=== PATIENT | female | born 1945 | race Caucasian/White ===

== ENCOUNTER 2021-11-25 12:43 | Observation (INO) | payer MEDICARE ==
[~2021-11-25] VITALS: Ht 167.6 cm; Wt 74.6 kg
[2021-11-25 13:17] LABS: BASOPHILS # (AUTO) 0.1 (0.0-0.1); BASOPHILS % 0.8 % (0.0-1.0); EOSINOPHILS # (AUTO) 0.1 (0.0-0.4); EOSINOPHILS % 1.2 % (0.0-6.0); HEMATOCRIT 38.6 % (34.2-44.1); HEMOGLOBIN 12.5 g/dL (12.0-16.0); LYMPHOCYTES # (AUTO) 1.3 (1.0-3.2); LYMPHOCYTES % 13.7 % (18.0-39.1); MEAN CORPUSCULAR HEMOGLOBIN 30.9 pg (28-32); MEAN CORPUSCULAR HGB CONC 32.4 g/dL (31-35); MEAN CORPUSCULAR VOLUME 95.3 fL (81-99); MONOCYTES # (AUTO) 0.5 (0.2-0.8); MONOCYTES % 5.4 % (4.4-11.3); NEUTROPHILS # (AUTO) 7.3 (2.1-6.9); NEUTROPHILS % 78.4 % (38.7-80.0); PLATELET COUNT 290 x10e3/uL (140-360); RED BLOOD COUNT 4.05 x10e6/uL (3.6-5.1); RED CELL DISTRIBUTION WIDTH 14.3 % (11.7-14.4)
[2021-11-25 13:37] LABS: ALANINE AMINOTRANSFERASE 7 IU/L (0-55); ALKALINE PHOSPHATASE 63 IU/L (40-150); ANION GAP 17.9 mmol/L (8-16); BLOOD UREA NITROGEN 18 mg/dL (7-26); BUN/CREATININE RATIO 10 (6-25); CALCIUM 8.9 mg/dL (8.4-10.2); CARBON DIOXIDE 21 mmol/L (22-29); CHLORIDE 106 mmol/L (98-107); CREATINE KINASE 148 IU/L (29-168); CREATININE, SERUM 1.74 mg/dL (0.57-1.11); GLUCOSE 100 mg/dL (74-118); POTASSIUM 3.9 mmol/L (3.5-5.1); SODIUM 141 mmol/L (136-145)
[2021-11-25] MEDS ORDERED: SODIUM CHLORIDE 0.9% 500ML 500 ML IV ONE (14:30)
[2021-11-25] MEDS ORDERED: IOPAMIDOL 370 MG/ML 100 ML INFUS..BTL INJ ONE (15:12)
[2021-11-25] MEDS ORDERED: NITROGLYCERIN 0.4 MG SUBL SL PRN (16:15)
[2021-11-25] MEDS ORDERED: ASPIRIN 81 MG CHEW TAB PO ONE (16:15)
[2021-11-25] MEDS ORDERED: ONDANSETRON HCL INJ 2MG/ML 2ML 2 MG/ML VIAL IV PRN (16:15)
[2021-11-25] MEDS ORDERED: SODIUM CHLORIDE 0.9% 1000ML 1,000 ML IV SCH (16:15)
[2021-11-25] MEDS ORDERED: FLUOXETINE HCL20 MG PO (16:19)
[2021-11-25] MEDS ORDERED: XELJANZ XR11 MG PO (16:19)
[2021-11-25] MEDS ORDERED: SODIUM BICARBO650 MG PO (16:19)
[2021-11-25] MEDS ORDERED: METOPROLOL SUCC25 MG PO (16:19)
[2021-11-25] MEDS ORDERED: AMLODIPINE BESYL5 MG PO (16:19)
[2021-11-25] MEDS ORDERED: GABAPENTIN100 MG PO (16:19)
[2021-11-25] MEDS ORDERED: LEVOTHYROXINE75 MCG PO (16:19)
[2021-11-25] MEDS ORDERED: PANTOPRAZOLE SO40 MG PO (16:19)
[2021-11-25] MEDS: FAMOTIDINE 20 MG/2 ML VIAL IV SCH (17:01)
[2021-11-25 19:56] LABS: CREATINE KINASE MB 1.5 ng/mL (0-5.0)
[2021-11-25 20:14] VITALS: BP 149/58
[2021-11-25 20:35] VITALS: BP 149/58
[2021-11-26 00:20] VITALS: BP 134/65
[2021-11-26 01:06] LABS: CREATINE KINASE MB 1.6 ng/mL (0-5.0)
[2021-11-26 04:00] VITALS: BP 136/68
[2021-11-26] MEDS: FAMOTIDINE 20 MG/2 ML VIAL IV SCH ×2 (04:15→16:10)
[2021-11-26] MEDS ORDERED: LEVOTHYROXINE SODIUM 75 MCG TAB PO SCH (06:00)
[2021-11-26 06:13] LABS: BASOPHILS # (AUTO) 0.1 (0.0-0.1); EOSINOPHILS # (AUTO) 0.1 (0.0-0.4); EOSINOPHILS % 1.9 % (0.0-6.0); HEMATOCRIT 33.8 % (34.2-44.1); HEMOGLOBIN 10.7 g/dL (12.0-16.0); LYMPHOCYTES # (AUTO) 1.2 (1.0-3.2); LYMPHOCYTES % 19.9 % (18.0-39.1); MEAN CORPUSCULAR HEMOGLOBIN 30.4 pg (28-32); MEAN CORPUSCULAR HGB CONC 31.7 g/dL (31-35); MONOCYTES # (AUTO) 0.5 (0.2-0.8); NEUTROPHILS # (AUTO) 3.9 (2.1-6.9); NEUTROPHILS % 67.7 % (38.7-80.0); PLATELET COUNT 214 x10e3/uL (140-360); RED BLOOD COUNT 3.52 x10e6/uL (3.6-5.1); RED CELL DISTRIBUTION WIDTH 14.4 % (11.7-14.4)
[2021-11-26 06:41] LABS: CREATINE KINASE MB 1.5 ng/mL (0-5.0)
[2021-11-26 07:01] LABS: CALCIUM 8.1 mg/dL (8.4-10.2); CHOL/HDL RATIO 4.1 (3.0-3.6); CREATININE, SERUM 1.22 mg/dL (0.57-1.11)
[2021-11-26 08:00] VITALS: BP 155/72
[2021-11-26 08:09] VITALS: BP 155/72
[2021-11-26] MEDS: GABAPENTIN 100 MG CAP PO SCH ×2 (08:57→16:10)
[2021-11-26] MEDS ORDERED: AMLODIPINE BESYLATE 5 MG TAB PO SCH (09:00)
[2021-11-26] MEDS ORDERED: ASPIRIN 81 MG ENTERIC COATED PO SCH (09:00)
[2021-11-26] MEDS ORDERED: METOPROLOL SUCCINATE 25 MG TAB XL PO SCH (09:00)
[2021-11-26] MEDS ORDERED: PANTOPRAZOLE SOD 40 MG TABEC PO SCH (09:00)
[2021-11-26] MEDS ORDERED: XELJANZ 11 MG PO SCH (09:00)
[2021-11-26] MEDS ORDERED: FLUOXETINE HCL 20 MG CAP PO SCH (09:00)
[2021-11-26] MEDS ORDERED: SODIUM BICARBONATE 650 MG TAB PO SCH (09:00)
[2021-11-26] MEDS ORDERED: ONDANSETRON HCL 4 MG ORAL DISINTEGRATING TAB PO PRN (10:30)
[2021-11-26 11:41] VITALS: BP 140/61
[2021-11-26 15:44] VITALS: BP 137/67
== END 2021-11-26 17:56 | disposition home or self-care (01) ==
LOC: ER 13:00 → INTOOBSV 16:09 → ERHOLD 16:09 → MED/SURG 20:06
DX: R07.89 Other chest pain (principal); I12.9 Hypertensive chronic kidney disease with stage 1 through stage 4 chronic kidney disease, or unspecified chronic kidney disease; N18.2 Chronic kidney disease, stage 2 (mild); K21.9 Gastro-esophageal reflux disease without esophagitis; M06.9 Rheumatoid arthritis, unspecified; E03.9 Hypothyroidism, unspecified; R07.2 Precordial pain; R00.2 Palpitations; K44.9 Diaphragmatic hernia without obstruction or gangrene; D63.8 Anemia in other chronic diseases classified elsewhere; Z88.5 Allergy status to narcotic agent; Z88.0 Allergy status to penicillin; Z20.822 Contact with and (suspected) exposure to COVID-19
CPT/HCPCS: 36415 ×2; 71045; 71260; 80048; 80053; 80061; 82550 ×2; 82553 ×2; 83880; 84484 ×2; 85025 ×2; 85379; 93005; 93306; 94799 ×2; 99284; G0378 ×2; J7030 ×2; J7040; Q9967; S0164; U0002

== ENCOUNTER 2023-04-18 13:18 | Emergency (ER) | payer MEDICARE ==
[~2023-04-18] VITALS: Ht 167.6 cm; Wt 74.4 kg
[~2023-04-18 13:18] MED LIST: AMLODIPINE BESYL5 MG PO; FLUOXETINE HCL20 MG PO; GABAPENTIN100 MG PO; LEVOTHYROXINE75 MCG PO; METOPROLOL SUCC25 MG PO; PANTOPRAZOLE SO40 MG PO; SODIUM BICARBO650 MG PO; XELJANZ XR11 MG PO
[2023-04-18 13:39] VITALS: O2SAT 99
[2023-04-18] MEDS ORDERED: ACETAMINOPHEN 325 MG TAB PO ONE (14:00)
== END 2023-04-18 15:48 | disposition home or self-care (01) ==
LOC: ER 13:24
DX: S52.592A Other fractures of lower end of left radius, initial encounter for closed fracture (principal); W01.0XXA Fall on same level from slipping, tripping and stumbling without subsequent striking against object, initial encounter; Y93.01 Activity, walking, marching and hiking; Y92.89 Other specified places as the place of occurrence of the external cause; M13.88 Other specified arthritis, other site; I10 Essential (primary) hypertension; N28.9 Disorder of kidney and ureter, unspecified; E03.9 Hypothyroidism, unspecified; K21.9 Gastro-esophageal reflux disease without esophagitis; M06.9 Rheumatoid arthritis, unspecified; F41.9 Anxiety disorder, unspecified
CPT/HCPCS: 99284